=== PATIENT | male | born 1960 | race Caucasian/White ===

== ENCOUNTER 2021-03-05 14:22 | Inpatient (IN) ==
[2021-03-05] MEDS ORDERED: Naloxone 0.4 MG/ML INJ IVP PRN (16:55)
[2021-03-05] MEDS ORDERED: Perflutren Lipid Microsphere 1.3 ML in 0.9 % Sodium Chloride 8.7 ML IVP PRN (17:00)
[2021-03-05] MEDS ORDERED: Nicotine 21 MG PATCH.TD24 TD PRN (17:45)
[2021-03-05] MEDS ORDERED: Albuterol 2.5 MG/3 ML NEBULIZER IH PRN (17:57)
[2021-03-05 18:42] LABS: Troponin I 0.1 ng/mL (< 0.04)
[2021-03-05 18:44] LABS: Adenovirus Not Detected (Not Detect); Bordetella Pertussis Not Detected (Not Detect); Chlamydophila pneumoniae Not Detected (Not Detect); Coronavirus 229E Not Detected (Not Detect); Coronavirus HKU1 Not Detected (Not Detect); Coronavirus NL63 Not Detected (Not Detect); Coronavirus OC43 Not Detected (Not Detect); Human Metapneumovirus Not Detected (Not Detect); Human Rhinovirus/Enterovirus Not Detected (Not Detect); Influenza A Subtype 2009 H1 Not Detected (Not Detect); Influenza B Not Detected (Not Detect); Mycoplasma pneumoniae Not Detected (Not Detect); Parainfluenza Virus 1 Not Detected (Not Detect); Parainfluenza Virus 2 Not Detected (Not Detect); Parainfluenza Virus 3 Not Detected (Not Detect); Parainfluenza Virus 4 Not Detected (Not Detect); Respiratory Syncytial Virus Not Detected (Not Detect); SARS-CoV-2 Not Detected (Not Detect)
[2021-03-06 00:53] LABS: Basophils % 0.2 %; Hematocrit 40.1 % (37.5-50.1); Hemoglobin 12.3 g/dL (12.9-16.9); Immature Granulocytes % 0.3 % (0-4); Lymphocytes # 0.5 K/mcL (0.6-4.6); Lymphocytes % 8.5 %; Mean Corpuscular HGB Conc 30.7 g/dL (31.6-35.5); Mean Corpuscular Hemoglobin 30.1 pg (28.0-33.3); Mean Platelet Volume 10.8 fL (9.4-12.4); Monocytes # 0.1 K/mcL (0.0-1.3); Monocytes % 1.1 %; Neutrophils # 5.5 K/mcL (1.6-8.9); Platelet Count 184 K/mcL (140-400); Red Blood Count 4.09 M/mcL (4.19-5.50); Segmented Neutrophils % 89.9 %; White Blood Count 6.1 K/mcL (4.3-11.1)
[2021-03-06 01:12] LABS: Calcium 7.9 mg/dL (8.6-10.3); Potassium 4.4 mEq/L (3.5-5.1)
[2021-03-06 06:13] LABS: Bilirubin,Urine Negative (Negative); Blood,Urine Negative (Negative); Clarity,Urine Clear (Clear); Color,Urine Yellow (Yellow); Glucose,Urine (UA) Normal (Normal); Ketones,Urine Negative (Negative); Leukocyte Esterase,Urine Negative (Negative); Mucus,Urine Few per lpf (None-Few); Nitrite,Urine Negative (Negative); Protein,Urine >=300 mg/dL (Neg-Trace); RBC,Urine 0-3 per hpf (0-3); Specific Gravity,Urine 1.029 (1.010-1.025); Squamous Epithelial Cell,Urine Few per hpf (None-Few); Urobilinogen,Urine Normal (Normal)
[2021-03-06 06:18] LABS: Protein/Creatinine Ratio,Urine 0.95 mg/mg (0.00-0.20)
[2021-03-06] MEDS ORDERED: Furosemide 40 MG/4 ML VIAL IVP ONE (07:36)
[2021-03-06] MEDS: cefTRIAXone 1,000 MG in Water for inj. (sterile) 10 ML IVP SCH (08:40)
[2021-03-06] MEDS: Azithromycin 250 MG TABLET PO SCH (08:40)
[2021-03-06] MEDS ORDERED: Sucralfate 1 GM TABLET PO SCH (09:00)
[2021-03-06] MEDS: Acetaminophen 325 MG TABLET PO PRN (09:02)
[2021-03-06] MEDS: Sucralfate 1 GM TABLET PO SCH (16:59)
[2021-03-06] MEDS: *HR* Heparin 5,000 UNIT/ML VIAL SQ SCH (16:59)
[2021-03-06] MEDS ORDERED: Furosemide 40 MG/4 ML VIAL IVP SCH (17:00)
[2021-03-06] MEDS: Melatonin 3 MG TABLET PO PRN (23:35)
[2021-03-06] MEDS ORDERED: *HR* LORazepam 0.5 MG TABLET PO ONE (23:38)
[2021-03-07 01:22] LABS: Hemoglobin 12.4 g/dL (12.9-16.9); Immature Granulocytes % 0.5 % (0-4); Mean Corpuscular HGB Conc 31.8 g/dL (31.6-35.5); Mean Corpuscular Hemoglobin 31.1 pg (28.0-33.3); Mean Corpuscular Volume 97.7 fL (83.0-100.0); Mean Platelet Volume 10.9 fL (9.4-12.4); Monocytes % 6.4 %; Platelet Count 220 K/mcL (140-400); Red Blood Count 3.99 M/mcL (4.19-5.50)
[2021-03-07 01:23] LABS: Basophils % 0.1 %; Lymphocytes # 1.5 K/mcL (0.6-4.6); Monocytes # 1.2 K/mcL (0.0-1.3)
[2021-03-07 01:30] LABS: Neutrophils # 15.5 K/mcL (1.6-8.9); White Blood Count 18.2 K/mcL (4.3-11.1)
[2021-03-07 01:44] LABS: Calcium 8.3 mg/dL (8.6-10.3); Potassium 4.7 mEq/L (3.5-5.1)
[2021-03-07] MEDS: *HR* Heparin 5,000 UNIT/ML VIAL SQ SCH ×2 (05:10→16:34)
[2021-03-07] MEDS: Acetaminophen 325 MG TABLET PO PRN ×2 (08:08→16:33)
[2021-03-07] MEDS: Azithromycin 250 MG TABLET PO SCH (08:08)
[2021-03-07] MEDS: Sucralfate 1 GM TABLET PO SCH ×2 (08:08→16:33)
[2021-03-07] MEDS: Furosemide 40 MG/4 ML VIAL IVP SCH (08:10)
[2021-03-07] MEDS: cefTRIAXone 1,000 MG in Water for inj. (sterile) 10 ML IVP SCH (08:10)
[2021-03-07] MEDS ORDERED: Furosemide 40 MG/4 ML VIAL IVP SCH (09:00)
[2021-03-07] MEDS: Spironolactone 12.5 MG TABLET PO SCH (16:33)
[2021-03-07] MEDS: Melatonin 3 MG TABLET PO PRN (23:26)
[2021-03-08] MEDS: Sucralfate 1 GM TABLET PO SCH ×2 (05:45→16:01)
[2021-03-08] MEDS: *HR* Heparin 5,000 UNIT/ML VIAL SQ SCH ×2 (05:46→17:03)
[2021-03-08] MEDS: Azithromycin 250 MG TABLET PO SCH (08:03)
[2021-03-08] MEDS: Acetaminophen 325 MG TABLET PO PRN (08:03)
[2021-03-08] MEDS: Spironolactone 12.5 MG TABLET PO SCH (08:03)
[2021-03-08] MEDS: Furosemide 40 MG/4 ML VIAL IVP SCH (08:03)
[2021-03-08] MEDS: cefTRIAXone 1,000 MG in Water for inj. (sterile) 10 ML IVP SCH (08:04)
[2021-03-08 10:05] LABS: Basophils # 0.1 K/mcL (0.0-0.2); Basophils % 0.5 %; Eosinophils # 0.1 K/mcL (0.0-0.6); Eosinophils % 0.8 %; Hematocrit 39.9 % (37.5-50.1); Hemoglobin 12.8 g/dL (12.9-16.9); Immature Granulocytes % 0.4 % (0-4); Lymphocytes # 2.5 K/mcL (0.6-4.6); Lymphocytes % 23.7 %; Mean Corpuscular HGB Conc 32.1 g/dL (31.6-35.5); Mean Corpuscular Hemoglobin 31.1 pg (28.0-33.3); Mean Corpuscular Volume 97.1 fL (83.0-100.0); Mean Platelet Volume 10.7 fL (9.4-12.4); Monocytes # 0.9 K/mcL (0.0-1.3); Monocytes % 8.8 %; Neutrophils # 6.9 K/mcL (1.6-8.9); Platelet Count 219 K/mcL (140-400); Red Blood Count 4.11 M/mcL (4.19-5.50); Red Cell Distribution Width 14.7 % (11.5-14.5); Segmented Neutrophils % 65.8 %; White Blood Count 10.5 K/mcL (4.3-11.1)
[2021-03-08 10:09] LABS: Calcium 8.8 mg/dL (8.6-10.3); Chol/HDL Ratio 5.2 (0-4.9); Potassium 4.1 mEq/L (3.5-5.1)
[2021-03-08 13:06] LABS: Estimated Average Glucose 143 mg/dl; Hemoglobin A1C 6.6 %
[2021-03-09 03:41] LABS: Basophils % 0.2 %; Eosinophils # 0.1 K/mcL (0.0-0.6); Eosinophils % 1.4 %; Hemoglobin 12.3 g/dL (12.9-16.9); Immature Granulocytes % 0.2 % (0-4); Lymphocytes # 1.9 K/mcL (0.6-4.6); Lymphocytes % 23.6 %; Mean Corpuscular HGB Conc 32.4 g/dL (31.6-35.5); Mean Corpuscular Hemoglobin 30.9 pg (28.0-33.3); Mean Corpuscular Volume 95.5 fL (83.0-100.0); Mean Platelet Volume 10.5 fL (9.4-12.4); Monocytes # 0.9 K/mcL (0.0-1.3); Monocytes % 11.2 %; Neutrophils # 5.1 K/mcL (1.6-8.9); Platelet Count 202 K/mcL (140-400); Red Blood Count 3.98 M/mcL (4.19-5.50); Red Cell Distribution Width 14.4 % (11.5-14.5); Segmented Neutrophils % 63.4 %; White Blood Count 8.1 K/mcL (4.3-11.1)
[2021-03-09 04:05] LABS: BUN/Creatinine Ratio 30 (6-26); Blood Urea Nitrogen 41 mg/dL (8-23); Calcium 8.6 mg/dL (8.6-10.3); Carbon Dioxide 29 mEq/L (23-29); Chloride 101 mEq/L (98-107); Glucose 98 mg/dL (70-105); Osmolality,Calculated 296 (280-300); Sodium 138 mEq/L (136-145); eGFR For African Americans > 60 (> 60); eGFR For Non-African Americans 54 (> 60)
[2021-03-09] MEDS: *HR* Heparin 5,000 UNIT/ML VIAL SQ SCH ×2 (05:49→17:58)
[2021-03-09] MEDS: Sucralfate 1 GM TABLET PO SCH ×2 (07:34→16:16)
[2021-03-09] MEDS: Azithromycin 250 MG TABLET PO SCH (09:44)
[2021-03-09] MEDS: Spironolactone 12.5 MG TABLET PO SCH (09:45)
[2021-03-09] MEDS: cefTRIAXone 1,000 MG in Water for inj. (sterile) 10 ML IVP SCH (09:45)
[2021-03-09] MEDS: Furosemide 40 MG/4 ML VIAL IVP SCH (10:36)
[2021-03-09] MEDS ORDERED: *HR* Heparin 10,000 UNIT/10 ML VIAL ONE (14:15)
[2021-03-09] MEDS ORDERED: 0.9 % Sodium Chloride 1,000 ML ONE ×2 (14:16→14:17)
[2021-03-09] MEDS ORDERED: Heparin 1,000 UNITS/500 mL 500 ML ONE (14:16)
[2021-03-09] MEDS ORDERED: ISOVUE-370 200 ML INFUS..BTL ONE (14:16)
[2021-03-09] MEDS ORDERED: Nitroglycerin 1,000 MCG/5 ML VIAL IV ONE (14:16)
[2021-03-09] MEDS ORDERED: *HR* Midazolam HCl 2 MG/2 ML VIAL ONE (14:33)
[2021-03-09] MEDS ORDERED: *HR* FentaNYL (PF) 100 MCG/2 ML VIAL ONE (14:33)
[2021-03-09] MEDS: Aspirin 81 MG TAB.CHEW PO SCH (17:58)
[2021-03-09] MEDS: carvediloL 6.25 MG TABLET PO SCH (17:58)
[2021-03-10] MEDS: Melatonin 3 MG TABLET PO PRN (00:25)
[2021-03-10 01:30] LABS: Basophils % 0.6 %; Eosinophils # 0.1 K/mcL (0.0-0.6); Eosinophils % 1.7 %; Hematocrit 38.4 % (37.5-50.1); Hemoglobin 12.2 g/dL (12.9-16.9); Immature Granulocytes % 0.3 % (0-4); Lymphocytes # 1.8 K/mcL (0.6-4.6); Lymphocytes % 24.8 %; Mean Corpuscular HGB Conc 31.8 g/dL (31.6-35.5); Mean Corpuscular Hemoglobin 30.1 pg (28.0-33.3); Mean Corpuscular Volume 94.8 fL (83.0-100.0); Mean Platelet Volume 10.7 fL (9.4-12.4); Monocytes # 0.7 K/mcL (0.0-1.3); Monocytes % 10.2 %; Neutrophils # 4.5 K/mcL (1.6-8.9); Platelet Count 207 K/mcL (140-400); Red Blood Count 4.05 M/mcL (4.19-5.50); Red Cell Distribution Width 14.2 % (11.5-14.5); Segmented Neutrophils % 62.4 %; White Blood Count 7.2 K/mcL (4.3-11.1)
[2021-03-10 01:57] LABS: BUN/Creatinine Ratio 22 (6-26); Blood Urea Nitrogen 28 mg/dL (8-23); Calcium 8.4 mg/dL (8.6-10.3); Carbon Dioxide 28 mEq/L (23-29); Chloride 102 mEq/L (98-107); Glucose 149 mg/dL (70-105); Osmolality,Calculated 294 (280-300); Potassium 3.7 mEq/L (3.5-5.1); Sodium 138 mEq/L (136-145); eGFR For African Americans > 60 (> 60); eGFR For Non-African Americans 57 (> 60)
[2021-03-10] MEDS: *HR* Heparin 5,000 UNIT/ML VIAL SQ SCH ×2 (05:46→17:51)
[2021-03-10] MEDS: carvediloL 6.25 MG TABLET PO SCH (07:43)
[2021-03-10] MEDS: Aspirin 81 MG TAB.CHEW PO SCH (07:43)
[2021-03-10] MEDS: Spironolactone 12.5 MG TABLET PO SCH (07:43)
[2021-03-10] MEDS: Sucralfate 1 GM TABLET PO SCH ×2 (07:43→17:50)
[2021-03-10] MEDS ORDERED: carvediloL 6.25 MG TABLET PO SCH (17:00)
[2021-03-10 18:51] VITALS: BP 130/83; PULSE 92; TEMP 98; O2SAT 93
== END 2021-03-10 20:38 | disposition short-term general hospital (02) | DRG 192 ==
LOC: 2ANU → SUATTDRO 16:44
PROVIDERS: ADMIT Internal Medicine; ATTEND Internal Medicine